=== PATIENT | female | born 1990 | race Asian ===

== ENCOUNTER 2020-08-18 02:44 | Inpatient (IN) | payer OTHER ==
[~2020-08-18] VITALS: Ht 149.9 cm; Wt 57.0 kg
[2020-08-18 03:02] VITALS: BP 136/91
[2020-08-18] MEDS ORDERED: TERBUTALINE 1 MG/ML, 1ML IVPush PRN (03:30)
[2020-08-18] MEDS ORDERED: TERBUTALINE 1 MG/ML, 1ML SQ PRN (03:30)
[2020-08-18] MEDS ORDERED: ONDANSETRON 2MG/ML, 2ML IVPush PRN ×2 (03:30→16:30)
[2020-08-18] MEDS ORDERED: CALCIUM CARBONATE 500 MG TAB.CHEW PO PRN (03:30)
[2020-08-18] MEDS ORDERED: FENTANYL PF 100 MCG/2ML IV PRN (03:30)
[2020-08-18] MEDS ORDERED: FENTANYL PF 100 MCG/2ML IVPush PRN (03:30)
[2020-08-18] MEDS: LACTATED RINGERS 1,000 ML IV SCH ×4 (03:30→19:30)
[2020-08-18] MEDS: D5%-LACTATED RINGERS 1,000 ML IV SCH ×3 (03:30→19:30)
[2020-08-18] MEDS ORDERED: OXYTOCIN 30U/ 0.9% NaCL 500ML 500 ML IV ONE (03:30)
[2020-08-18 03:47] LABS: BASOPHILS % (AUTO) 1 % (0-1); EOSINOPHILS % (AUTO) 4 % (1-7); LYMPHOCYTES % (AUTO) 21 % (22-44); MEAN CORPUSCULAR HEMOGLOBIN 32.9 pg (27.0-34.8); MEAN PLATELET VOLUME 8.4 fL (7.4-10.4); MONOCYTES % (AUTO) 7 % (2-9); NEUTROPHILS % (AUTO) 67 % (42-75); PLATELET COUNT 259 x10^3/uL (130-400); RED BLOOD COUNT 4.13 x10^6/uL (3.82-5.3); RED CELL DISTRIBUTION WIDTH 13.9 % (9.6-15.2)
[2020-08-18] MEDS ORDERED: LIDOCAINE 1%, 20ML ONE (03:48)
[2020-08-18] MEDS ORDERED: MISOPROSTOL 200 MCG TABLET ONE (03:48)
[2020-08-18] MEDS ORDERED: NEWBORN KIT ONE (03:48)
[2020-08-18 03:49] LABS: MD NO
[2020-08-18 04:08] LABS: MICROSCOPIC INDICATED
[2020-08-18] MEDS ORDERED: FENTANYL/BUPIV./NS/PF 250 ML EPIDCONT SCH ×2 (15:30→16:30)
[2020-08-18] MEDS ORDERED: FENTANYL PF 500 MCG, BUPIVACAINE/PF 0.5%, 30ML 62.5 ML in SODIUM CHLORIDE 0.9% 177.5 ML EPIDCONT SCH (15:30)
[2020-08-18] MEDS ORDERED: BUPIVACAINE 0.25% ONE (16:08)
[2020-08-18] MEDS ORDERED: LACTATED RINGERS 1,000 ML IVBOLUS PRN (16:30)
[2020-08-18] MEDS ORDERED: DIPHENHYDRAMINE 50 MG/ML, 1ML IVPush PRN (16:30)
[2020-08-18] MEDS ORDERED: EPHEDRINE 50 MG/ML, 1ML IVPush PRN (16:30)
[2020-08-18] MEDS ORDERED: NALOXONE 0.4 MG/ML, 1ML IVPush PRN (16:30)
[2020-08-18] MEDS: OXYTOCIN 30U/ 0.9% NaCL 500ML 500 ML IV SCH (19:30)
[2020-08-18] MEDS ORDERED: OXYcodone/APAP 5/325MG TABLET PO PRN (19:30)
[2020-08-18] MEDS ORDERED: OXYTOCIN 30U/ 0.9% NaCL 500ML 500 ML IV PRN (19:30)
[2020-08-18] MEDS ORDERED: ONDANSETRON 2MG/ML, 2ML IV PRN (19:30)
[2020-08-18] MEDS ORDERED: MISOPROSTOL 200 MCG TABLET PR PRN (19:30)
[2020-08-18] MEDS ORDERED: ACETAMINOPHEN 325 MG TABLET PO PRN (19:30)
[2020-08-18] MEDS ORDERED: OXYcodone IR 5MG TABLET PO PRN (19:30)
[2020-08-18] MEDS ORDERED: SIMETHICONE 80 MG CHEW TAB PO PRN (19:30)
[2020-08-18 21:20] VITALS: BP 130/83
[2020-08-18 23:37] VITALS: BP 108/73
[2020-08-18] MEDS: IBUPROFEN 600 MG TABLET PO PRN (23:51)
[2020-08-19] MEDS: LACTATED RINGERS 1,000 ML IV SCH ×4 (00:30→19:30)
[2020-08-19 03:28] LABS: BASOPHILS % (AUTO) 0 % (0-1); EOSINOPHILS % (AUTO) 1 % (1-7); LYMPHOCYTES % (AUTO) 16 % (22-44); MD NO; MEAN CORPUSCULAR HEMOGLOBIN 32.8 pg (27.0-34.8); MEAN CORPUSCULAR HGB CONC 33.4 g/dL (32.4-35.8); MEAN PLATELET VOLUME 8.2 fL (7.4-10.4); MONOCYTES % (AUTO) 7 % (2-9); NEUTROPHILS % (AUTO) 76 % (42-75); PLATELET COUNT 233 x10^3/uL (130-400); RED BLOOD COUNT 3.94 x10^6/uL (3.82-5.3)
[2020-08-19] MEDS: D5%-LACTATED RINGERS 1,000 ML IV SCH ×3 (03:30→19:30)
[2020-08-19 04:10] VITALS: BP 112/69
[2020-08-19] MEDS: OXYTOCIN 30U/ 0.9% NaCL 500ML 500 ML IV SCH ×2 (05:30→15:54)
[2020-08-19] MEDS: IBUPROFEN 600 MG TABLET PO PRN ×3 (07:52→20:51)
[2020-08-19] MEDS: DOCUSATE 100 MG CAPSULE PO PRN ×2 (07:52→20:51)
[2020-08-19] MEDS: PRENATAL VIT/IRON/FA 1 EACH TABLET PO SCH (08:18)
[2020-08-19 08:34] VITALS: BP 117/78
[2020-08-19 12:14] VITALS: BP 120/76
[2020-08-19 16:26] VITALS: BP 128/84
[2020-08-19 20:18] VITALS: BP 135/84
[2020-08-20] MEDS: OXYTOCIN 30U/ 0.9% NaCL 500ML 500 ML IV SCH (01:30)
[2020-08-20] MEDS: D5%-LACTATED RINGERS 1,000 ML IV SCH (03:30)
[2020-08-20] MEDS: LACTATED RINGERS 1,000 ML IV SCH (03:30)
[2020-08-20] MEDS: IBUPROFEN 600 MG TABLET PO PRN (05:36)
[2020-08-20 07:45] VITALS: BP 114/77
[2020-08-20] MEDS: PRENATAL VIT/IRON/FA 1 EACH TABLET PO SCH (09:25)
[2020-08-20] MEDS: DOCUSATE 100 MG CAPSULE PO PRN (09:25)
[2020-08-20] MEDS ORDERED: IBUP-1222 PO (10:29)
== END 2020-08-20 10:55 | disposition home or self-care (01) | DRG 807 ==
LOC: LDOP 02:44 → LDIP 03:19 → 2NW 21:10
PROVIDERS: ADMIT Obstetrics & Gynecology; ATTEND Obstetrics & Gynecology
PROC: 10E0XZZ Delivery of Products of Conception, External Approach (ICD-10-PCS; principal; 2020-08-18)
PROC: 3E0R3BZ Introduction of Anesthetic Agent into Spinal Canal, Percutaneous Approach (ICD-10-PCS; 2020-08-18)
PROC: 00HU33Z Insertion of Infusion Device into Spinal Canal, Percutaneous Approach (ICD-10-PCS; 2020-08-18)
DX: O60.14X0 Preterm labor third trimester with preterm delivery third trimester, not applicable or unspecified (principal); Z37.0 Single live birth; Z3A.36 36 weeks gestation of pregnancy; Z83.3 Family history of diabetes mellitus; Z20.822 Contact with and (suspected) exposure to COVID-19
CPT/HCPCS: 36415; S0020; 81001; 85025; 86592; 86850; 86900; 87086; 87635; G0378; J3010; J2590; J7050; J7120